=== PATIENT | male | born 2000 | race American Indian/Alaskan Native ===

== ENCOUNTER 2019-02-02 18:45 | Emergency (ER) | payer MEDICAID ==
--- NOTE | 2019-02-02 19:24 | Event Note ---
ED Screening Note Date of service: 02/02/19 Time: 19:21 ED Screening Note: This is a 18 y.o. M. that presents to the ER for medical clearance for admission to [facility]. 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 This initial assessment/diagnostic orders/clinical plan/treatment(s) is/are subject to change based on patients health status, clinical progression and re- assessment by fellow clinical providers in the ED. Further treatment and workup at subsequent clinical providers discretion. Patient/guardian urged not to elope from the ED as their condition may be serious if not clinically assessed and managed. Initial orders include: Labs
--- NOTE | 2019-02-02 19:46 | Event Note ---
Face to Face: For this encounter I have reviewed the PA/ORTHOPAEDIC NURSE documentation, treatment plan, medical decision making, and I had face to face time with this patient.
--- NOTE | 2019-02-02 19:56 | Emergency Department Report ---
ED General Adult HPI - General Chief complaint: Medical Clearance Stated complaint: MEDICAL CLEARANCE Time Seen by Provider: 02/02/19 19:21 Source: patient, RN notes reviewed Mode of arrival: Ambulatory Limitations: No Limitations - History of Present Illness Initial comments: This is a pleasant 18-year-old gentleman who is not known to this provider previously. Patient is at an outpatient facility on a voluntary basis for detox. He was sent to the emergency room by his facility for medical clearance. The patient consumed one recreational beer at 5:00 PM this afternoon. He was sent to this department for medical clearance. He states he is not having any pain. He denies coingestions. He has no medical complaints at this time. He is asking to be discharged so he can make his curfew. He is not homicidal or suicidal. -: This afternoon Improves with: none Worsens with: none Associated Symptoms: denies other symptoms - Related Data Allergies Allergy/AdvReac Type Severity Reaction Status Date / Time No Known Allergies Allergy Unverified 02/02/19 18:50 ED Review of Systems ROS: Stated complaint: MEDICAL CLEARANCE Other details as noted in HPI Comment: All other systems reviewed and negative ED Past Medical Hx - Past Medical History Previous Medical History?: No - Surgical History Past Surgical History?: No - Social History Smoking Status: Current Every Day Smoker Substance Use Type: Alcohol, Marijuana ED Physical Exam - General Limitations: No Limitations General appearance: alert, in no apparent distress - Head Head exam: Present: atraumatic, normocephalic - Eye Eye exam: Present: normal appearance, EOMI. Absent: nystagmus - ENT ENT exam: Present: normal exam, normal orophraynx, mucous membranes moist, normal external ear exam - Neck Neck exam: Present: normal inspection, full ROM. Absent: tenderness, meningismus - Respiratory Respiratory exam: Present: normal lung sounds bilaterally. Absent: respiratory distress - Cardiovascular Cardiovascular Exam: Present: regular rate, normal rhythm, normal heart sounds. Absent: bradycardia, tachycardia, irregular rhythm, systolic murmur, diastolic murmur, rubs, gallop - GI/Abdominal GI/Abdominal exam: Present: soft. Absent: distended, tenderness, guarding, rebound, rigid, pulsatile mass - Rectal Rectal exam: Present: deferred - Extremities Exam Extremities exam: Present: normal inspection, full ROM, other (2+ pulses noted in the bilateral upper, lower extremities. There is no long bone tenderness. Musculoskeletal compartments are soft. The pelvis is stable.). Absent: pedal edema, joint swelling, calf tenderness - Back Exam Back exam: Present: normal inspection, full ROM. Absent: tenderness, CVA tenderness (R), CVA tenderness (L), paraspinal tenderness, vertebral tenderness - Neurological Exam Neurological exam: Present: alert, oriented X3, normal gait, other (there is no facial droop. The tongue is midline. Extraocular movements are intact bilaterally. Patient speaking in full complete sentences. Shoulder shrug is intact bilaterally. Hearing is grossly intact bilaterally. Visual acuity intact to finger counting and color perception at a close distance. 5/5 strength 4 extremities. Sensation intact to light touch in 4 extremities.). Absent: motor sensory deficit - Psychiatric Psychiatric exam: Present: normal affect, normal mood. Absent: homicidal ideation, suicidal ideation - Skin Skin exam: Present: warm, dry, intact, normal color. Absent: rash ED Course Vital Signs 02/02/19 19:21 Temperature 98.2 F Pulse Rate 88 Respiratory 16 Rate Blood Pressure 138/101 O2 Sat by Pulse 98 Oximetry ED Medical Decision Making - Lab Data Vital Signs 02/02/19 19:21 Temperature 98.2 F Pulse Rate 88 Respiratory 16 Rate Blood Pressure 138/101 O2 Sat by Pulse 98 Oximetry - Medical Decision Making Differential diagnosis, including but not limited to: Medical clearance, general medical evaluation, history of alcohol dependence Assessment and plan: 18-year-old gentleman sent here for medical clearance by an outpatient facility he is clinically sober, walks with a steady gait, has an unremarkable physical exam, and does not endorse any acute medical complaints. Upon initial evaluation is playing with a cellular phone. The patient denies coingestions. . He is afebrile with reassuring vital signs. The patient does not appear to have an emergent medical condition at this time. He is sober and suitable for discharge. Critical care attestation.: If time is entered above; I have spent that time in minutes in the direct care of this critically ill patient, excluding procedure time. ED Disposition Clinical Impression: General medical examination Disposition: DC-01 TO HOME OR SELFCARE Is pt being admited?: No Does the pt Need Aspirin: No Condition: Stable Additional Instructions: Recommend patient minimize alcohol consumption, follow-up with the primary care doctor within the next 4-6 weeks. Please do not consume alcohol, with recreatio nal drugs, and do not consume alcohol and drive and/or operate motor vehicles. At this point time, patient does not appear to have an immediate medical contraindication to outpatient discharge, and follow-up. Return to the emergency room right away with new, worsened or different symptoms not present on the initial emergency room evaluation. Referrals: [facility] [Provider Group] - 3-5 Days [facility] [Provider Group] - 3-5 Days
[2019-02-02 20:21] LABS: Bilirubin,Urine NEG (Negative); Blood,Urine NEG (Negative); Color,Urine Colorless (Yellow); Protein,Urine <15 mg/dL mg/dL (Negative); Urobilinogen,Urine < 2.0 mg/dL (<2.0)
[2019-02-02 20:24] VITALS: BP 131/92
[2019-02-02 20:28] LABS: Amphetamine Screen,Urine PRESUMPTIVE NEGATIVE; Benzodiazepines Screen,Urine PRESUMPTIVE NEGATIVE; Cannabinoid Screen,Urine PRESUMPTIVE NEGATIVE; Cocaine Screen,Urine PRESUMPTIVE NEGATIVE; Methadone Screen,Urine PRESUMPTIVE NEGATIVE; Opiate Screen,Urine PRESUMPTIVE NEGATIVE
[2019-02-02 20:39] LABS: RBC,Urine < 1.0 /HPF (0.0-6.0); WBC,Urine < 1.0 /HPF (0.0-6.0)
== END 2019-02-02 20:15 | disposition home or self-care (01) ==
LOC: ED 18:45
DX: F10.129 Alcohol abuse with intoxication, unspecified (principal); F17.200 Nicotine dependence, unspecified, uncomplicated; F12.10 Cannabis abuse, uncomplicated
CPT/HCPCS: 80307; 81001; 99283